=== PATIENT | female | born 2000 | race African-American/Black ===

== ENCOUNTER → 2019-05-08 | Outpatient (CLI) | payer MEDICAID ==
--- NOTE | 2019-05-08 16:50 | KCIC ---
EXAM: Obstetrics sonogram. HISTORY: anatomy survey. TECHNIQUE: Sonographic imaging of a gravid uterus was performed. COMPARISON: None. FINDINGS: There is a single intrauterine fetus in breech presentation with a heart rate of 139 beats per minute. There is a three-vessel umbilical cord with normal insertion. There is an anterior placenta without evidence of posterior previa. The amniotic fluid index is normal at 14.2 cm. The stomach, kidneys, bladder, spine, facial profile, extremities and heart are unremarkable. The brain is not well seen due to presentation. The biparietal diameter is 3.95 cm, corresponding with 18 weeks and 0 days. The head circumference is 15.00 cm, corresponding with 18 weeks and 1 day. The abdominal circumference is 14.11 cm, corresponding with 19 weeks and 3 days. The femoral length is 2.80 cm, corresponding with 19 weeks and 4 days. The estimated gestational age based on combined ultrasound measurements is 18 weeks and 4 days. The estimated due date is 10/05/2019. The estimated weight is 265 g. The cervix is closed and measures 4.9 cm in length. IMPRESSION: 1. Single intrauterine fetus in breech presentation with an estimated gestational age based on ultrasound measurements of 18 weeks and 4 days and heart rate of 139 bpm. 2. Suboptimal evaluation of the brain due to presentation. Follow-up evaluation can be performed to complete an otherwise unremarkable anatomy survey. Electronically signed by: Shy Cardona MD (05/08/2019 4:47 PM) [id number]
== END | disposition home or self-care (01) ==
LOC: KCIC US 14:56
PROVIDERS: ATTEND Obstetrics & Gynecology
DX: O32.1XX0 Maternal care for breech presentation, not applicable or unspecified (principal); Z3A.18 18 weeks gestation of pregnancy
CPT/HCPCS: 76805